=== PATIENT | female | born 1985 ===

== ENCOUNTER 2021-10-22 07:28 | Day surgery (SDC) | payer OTHER ==
[~2021-10-22] VITALS: Ht 165.1 cm; Wt 68.0 kg
== END 2021-10-22 18:45 | disposition home or self-care (01) ==
LOC: O/R 07:28 → CIR.AMB 07:28
PROVIDERS: ATTEND Obstetrics & Gynecology
DX: N84.0 Polyp of corpus uteri (principal); Z20.822 Contact with and (suspected) exposure to COVID-19; Z88.0 Allergy status to penicillin; Z88.8 Allergy status to other drugs, medicaments and biological substances; J45.909 Unspecified asthma, uncomplicated; Z86.16 Personal history of COVID-19